=== PATIENT | male | born 1975 | race African-American/Black ===

== ENCOUNTER 2019-03-18 03:07 | Emergency (ER) | payer OTHER ==
[2019-03-18] MEDS: CEPHALEXIN 500 MG CAP PO (03:43)
[2019-03-18] MEDS: TRIMETHOPRIM/SULFAMETHOX (DS) TAB PO (03:43)
== END 2019-03-18 03:53 | disposition home or self-care (01) ==
LOC: FTE 03:07
DX: L02.31 Cutaneous abscess of buttock (principal); E11.9 Type 2 diabetes mellitus without complications; F17.210 Nicotine dependence, cigarettes, uncomplicated
CPT/HCPCS: 99283; Z7502